=== PATIENT | male | born 1975 | race Caucasian/White ===

== ENCOUNTER 2016-06-28 07:47 | Emergency (ER) | payer SELFPAY ==
[~2016-06-28] VITALS: Ht 165.1 cm; Wt 65.0 kg
[~2016-06-28 07:47] MED LIST: ADVI200T17 PO; ALBU6.7H INH
[2016-06-28 08:12] VITALS: BP 125/71; PULSE 68; RESP 20; TEMP 97.8; O2SAT 98
== END 2016-06-28 09:32 | disposition left against medical advice (07) ==
LOC: NETRI 07:47
DX: R06.02 Shortness of breath (principal)
CPT/HCPCS: 99281